=== PATIENT | female | born 1960 | race Caucasian/White ===

== ENCOUNTER → 2018-01-15 11:43 | Outpatient (CLI) | payer OTHER, SELFPAY ==
[2018-01-15 11:57] LABS: Bacteria Urine None Seen
[2018-01-15 12:26] LABS: Add Manual Diff / Slide Review NO; Basophils Percent Auto 0.8 % (0-2); Eosinophils Percent Auto 2.2 % (2-4); Hematocrit 39.1 % (36-46); Hemoglobin 13.2 g/dL (12.0-16.0); Lymphocytes Percent Auto 35.8 % (25-40); Mean Corpuscular HGB Conc 33.7 % (30-36); Mean Corpuscular Hemoglobin 31.6 PG (26-34); Mean Corpuscular Volume 93.7 fL (80-100); Monocytes Percent Auto 8.6 % (3-14); Neutrophils Absolute Auto 3000 /uL (3000-5900); Neutrophils Percent Auto 52.6 % (50-75); Platelet Count 273 X10^3/uL (150-400); Red Blood Cell Count 4.17 X10^6/uL (4.0-5.2); Red Cell Distribution Width 13.6 % (11.6-14.8); White Blood Cell Count 5.6 X10^3/uL (4.5-11.0)
[2018-01-15 12:50] LABS: HEMOLYSIS < 15 (0-50); Potassium 4.7 mmol/L (3.4-5.1)
[2018-01-15 12:51] LABS: BUN Creatinine Ratio 21.1 (6-22); Blood Urea Nitrogen 19 mg/dL (7-17); Calcium 9.8 mg/dL (8.4-10.2); Carbon Dioxide 30 mmol/L (22-32); Chloride 102 mmol/L (98-107); Estimated Glomerular Filt Rate > 60.0 mL/min (>60); Glucose 102 mg/dL (70-100); Sodium 141 mmol/L (137-145)
[2018-01-15 13:22] LABS: Appearance Urine UA CLEAR; Bilirubin Urine UA NEGATIVE (NEGATIVE); Color Urine UA YELLOW; Glucose Urine UA NEGATIVE (Normal); Ketones Urine UA NEGATIVE (NEGATIVE); Leukocyte Esterase Urine UA NEGATIVE (NEGATIVE); Nitrite Urine UA Negative (Negative); Occult Blood Urine UA TRACE-LYSED (Negative); Protein Urine UA NEGATIVE (Negative); Specific Gravity Urine UA 1.015 (1.000-1.035); Urobilinogen Urine UA 0.2 E.U./dL (0.2); pH Urine UA 6.5 (4.5-8.0)
[2018-01-15 13:27] LABS: Culture Indicated Urine Cult Not Indicated; RBC Urine 0-1/HPF (0-5/HPF); Squamous Epithelial Cell Urine 0-1 /HPF; WBC Urine 0-1/HPF (0-5/HPF)
== END ==
PROVIDERS: PCP Registered Nurse; Visit Provider Orthopaedic Surgery
DX: Z01.818 Encounter for other preprocedural examination (principal); Z01.812 Encounter for preprocedural laboratory examination; N39.9 Disorder of urinary system, unspecified; R73.09 Other abnormal glucose
CPT/HCPCS: 36415; 80048; 81001; 83036; 85025; 93005; 93010